=== PATIENT | female | born 1955 | race Two or more races ===

== ENCOUNTER 2020-04-24 08:11 | Inpatient (IN) | payer OTHER ==
[~2020-04-24] VITALS: Ht 160 cm; Wt 81.6 kg
[2020-05-10] MEDS ORDERED: COZAAR100 MG PO (09:58)
[2020-05-10] MEDS ORDERED: LIPITOR40 MG PO (09:58)
[2020-05-10] MEDS ORDERED: FOSAMAX70 MG PO (09:58)
[2020-05-17] MEDS ORDERED: TYLenol Extra Streng PO (07:45)
[2020-05-17] MEDS ORDERED: XARELTO10 MG PO (07:45)
[2020-05-17] MEDS ORDERED: INTEGRA PLUS C1 EACH PO (07:45)
== END 2020-05-17 13:08 | DRG 470 ==
LOC: O/R 05-15 05:30 → RECOVERY 05-15 07:00 → SURH 05-15 15:45
PROVIDERS: ADMIT Orthopaedic Surgery Sports Medicine; ATTEND Orthopaedic Surgery Sports Medicine
PROC: 0SRD0J9 Replacement of Left Knee Joint with Synthetic Substitute, Cemented, Open Approach (ICD-10-PCS; principal; 2020-05-15 07:00)
DX: M17.12 Unilateral primary osteoarthritis, left knee (principal); I10 Essential (primary) hypertension

== ENCOUNTER 2022-06-18 08:14 | Inpatient (IN) | payer OTHER ==
[~2022-06-18] VITALS: Ht 160 cm; Wt 83.0 kg
[~2022-06-18 08:14] MED LIST: COZAAR100 MG PO; FOSAMAX70 MG PO; INTEGRA PLUS C1 EACH PO; LIPITOR40 MG PO; TYLenol Extra Streng PO; XARELTO10 MG PO
[2022-06-19] MEDS ORDERED: HYDROCHLOROTH12.5 MG PO (13:56)
[2022-06-24] MEDS ORDERED: FAMOTIDINE20 MG (08:23)
[2022-06-24] MEDS ORDERED: MAXIMUM D3325 MCG (08:24)
[2022-06-24] MEDS ORDERED: OMEPRAZOLE20 MG (08:24)
[2022-06-24] MEDS ORDERED: NABUMETONE500 MG (08:24)
[2022-06-24] MEDS ORDERED: GABAPENTIN300 M2 (08:24)
[2022-06-24] MEDS ORDERED: MELOXICAM7.5 MG (08:24)
[2022-06-24] MEDS ORDERED: SERTRALINE HCL50 MG (08:24)
[2022-06-24] MEDS ORDERED: DICLOFENAC SODI75 MG (08:24)
[2022-06-24] MEDS ORDERED: TYLENOL EXTRA500 MG (08:27)
[2022-06-26] MEDS ORDERED: PRILOSEC OTC20 MG PO (06:46)
[2022-06-26] MEDS ORDERED: OXYC1TAB9 PO (06:46)
[2022-06-26] MEDS ORDERED: XARELTO10 MG PO (06:46)
[2022-06-26] MEDS ORDERED: BACTRIM DS TAB1 EACH PO (06:46)
[2022-06-26] MEDS ORDERED: INTEGRA PLUS C1 EACH PO (06:46)
== END 2022-06-26 14:43 | DRG 470 ==
LOC: O/R 06-24 05:35 → SURH 06-24 05:35 → SURG 06-24 10:15 → SURH 06-24 13:47
PROVIDERS: ADMIT Orthopaedic Surgery Sports Medicine; ATTEND Orthopaedic Surgery Sports Medicine
PROC: 0SRC0J9 Replacement of Right Knee Joint with Synthetic Substitute, Cemented, Open Approach (ICD-10-PCS; principal; 2022-06-24 10:15)
DX: M17.11 Unilateral primary osteoarthritis, right knee (principal); I10 Essential (primary) hypertension; E78.5 Hyperlipidemia, unspecified; Z96.651 Presence of right artificial knee joint; Z20.822 Contact with and (suspected) exposure to COVID-19